=== PATIENT | female | born 1935 | race Caucasian/White ===

== ENCOUNTER 2017-08-15 12:20 | Outpatient (CLI) | payer OTHER ==
--- NOTE | 2017-08-15 13:20 | RAD ---
PA AND LATERAL CHEST: HISTORY: Dyspnea. COMPARISON: 09/19/16 study. FINDINGS: Heart size is enlarged. Right-sided pleural changes are stable as compared to the prior exam. The left lung remains clear. The bones appear slightly demineralized. IMPRESSION: Cardiomegaly with stable right pleural effusion. POS: OFF
== END 2017-08-15 12:21 | disposition home or self-care (01) ==
LOC: RAD 12:20
PROVIDERS: ATTEND Internal Medicine Critical Care Medicine
DX: R06.00 Dyspnea, unspecified (principal); J90 Pleural effusion, not elsewhere classified; I51.7 Cardiomegaly
CPT/HCPCS: 71020